=== PATIENT | female | born 1995 | race African-American/Black ===

== ENCOUNTER 2019-12-12 17:55 | Emergency (ER) | payer BC, SELFPAY ==
--- NOTE | 2019-12-12 19:59 | PC.NURSE ---
1941 pt was called into triage, no response. pt called back now at 1958, no response.
== END 2019-12-12 19:59 | disposition left against medical advice (07) ==
LOC: ANHED 20:04
DX: Z53.21 Procedure and treatment not carried out due to patient leaving prior to being seen by health care provider (principal)
CPT/HCPCS: 99199

== ENCOUNTER 2020-03-13 12:51 | Emergency (ER) | payer BC, SELFPAY ==
[2020-03-13] VITALS (9 sets, daily range): BP systolic 100–121; BP diastolic 55–68; PULSE 100–128; RESP 16–28; TEMP 36.6; O2SAT 99–100
--- NOTE | ~2020-03-13 | XR_ITS ---
EXAMINATION: XR chest 1V portable DATE: 03/13/2020 14:51 INDICATION: Shortness of breath. TECHNIQUE: A single frontal view of the chest was obtained. COMPARISON: None. FINDINGS: The chest demonstrates clear lungs without pneumonia, pleural effusion, or pneumothorax. Th e heart size is normal. IMPRESSION: 1. No acute cardiopulmonary disease. Reviewed, dictated and finalized at location A.
--- NOTE | 2020-03-13 13:07 | ECG_ITS ---
Measurements Intervals [place] Rate: 115 P: 34 KS: 121 QRS: 45 QRSD: 81 T: 34 QT: 314 QTc: 435 Interpretive Statements SINUS TACHYCARDIA BORDERLINE ST-T WAVE ABNORMALITY- INF/LAT LEADS BASELINE ARTIFACT- I, II, AVR, AVF, V1-V2 ABNORMAL ECG Electronically Signed On 03-13-2020 18:33:59 CDT by Garfield Moyer D.O.
--- NOTE | 2020-03-13 13:08 | ED.SOB ---
HPI - SOB/Dyspnea General Chief Complaint: Shortness of Breath/Dyspnea Stated Complaint: hard to breathe, 5 months preg Time Seen by Provider: 03/13/20 12:57 Source: patient Mode of arrival: ambulatory Limitations: no limitations History of Present Illness HPI Narrative: 24 yo female with h/o atopic dermatitis who is 5months who presents with c/o difficulty breathing starting yesterday during an exposure to dust. Her breathing has gradually worsened. She denies history of asthma. She denies chest pain, cough, fever, runny nose, congestion. She also reports runny and itchy eyes. PREET 08/02/20. Her OBGYN is Dr. Sekou GARCIA elicited complaint: shortness of breath Related Data Home Medications Medication Instructions Recorded Confirmed vit-iron fum-folic ac 1 tablet PO DAILY 03/13/20 03/13/20 [ Vitamin] Allergies Allergy/AdvReac Type Severity Reaction Status Date / Time No Known Allergies Allergy Verified 09/19/19 21:57 Review of Systems Review of Systems: All systems reviewed & are unremarkable except as noted in HPI and below Constitutional: Constitutional: Denies chills, Denies fever(s) and Denies weakness ENT: Denies epistaxis and Denies nasal congestion Cardiovascular: Cardiovascular: Denies chest pain, Denies rapid heart rate, Denies radiating jaw, neck or arm pain and Denies slow heart rate Respiratory: Respiratory: Denies chest congestion, Denies cough, Reports dyspnea and Reports wheezing Gastrointestinal: Gastrointestinal: Denies abdominal pain, Denies diarrhea, Denies nausea and Denies vomiting Genitourinary: Genitourinary: Denies abnormal vaginal bleeding, Denies hematuria and Denies vaginal discharge [facility] Social History Social History Smoking status: Never smoker Gender identity (if verbalized by the patient): Female Exam Const: General: alert Orientation/consciousness: patient oriented x3 Other: moderate distress due to wheezing HENMT: Head: normocephalic and atraumatic Ears: hearing grossly normal bilaterally Throat: posterior oropharynx normal and tonsils normal Eyes: Conjunctivae: conjunctival abnormality bilateral Pupils: Equal, round and reactive pupils present EOM: EOMs intact bilaterally Chest: Chest palpation & inspection: normal inspection of the chest Resp: Effort & Inspection: no retractions and tachypneic Auscultation: wheezes inspiratory wheezes and throughout Cardio: Rate: tachycardic Rhythm: regular rhythm Heart sounds: no murmurs GI: GI Palp: Yes Soft to palpation, No Tenderness to palpation present (GI), No Guarding due to palpation present (GI) and No Rigid due to palpation Skin: General skin exam: normal color Rashes: no rashes Neuro: General: patient oriented x3 and moves all extremities Extrem: General: no pedal edema Course Reevaluation(s) Reevaluation #1: Patient denies any shortness of breath any more. Her lung sounds are clear on reevaluation. She is agreeable to discharge. She understands her wbc is elevated but she states it is always high. She understands she will need to follow up with OB this week and return to ER if symptoms worsen again. Date: 03/13/20 Time: 15:41 Consultations Consultation #1: I have discussed case with ANGELA Andres, who agrees patient can be discharged home with close follow up . I Discussed leukocytosis. She is okay with discharge with steroids, claritin and albuterol rescue inhaler Date: 03/13/20 Time: 15:42 Vital Signs Vital signs: Vital Signs Pulse Rate 122 H 03/13/20 13:15 Temperature 97.8 F 03/13/20 13:18 Pulse Rate 100 03/13/20 16:00 Respiratory Rate 22 H 03/13/20 16:00 Blood Pressure 106/55 L 03/13/20 16:00 Pulse Oximetry 100 03/13/20 16:00 MDM - SOB/Dyspnea Differential Diagnosis Differential diagnosis: Likely congestive heart failure, community acquired pneumonia, asthma wit
[2020-03-13] MEDS: ALBUTEROL SULFATE NEB 2.5 MG/0.5 ML INH 10 MG INHALATION (13:23)
[2020-03-13] MEDS: IPRATROPIUM BR 0.02% INH SOLN 0.5 MG/2.5 ML VIAL 1 MG INHALATION (13:23)
[2020-03-13] MEDS: FAMOTIDINE 20 MG/2 ML VIAL IV PUSH (13:26)
[2020-03-13 14:37] LABS: Basophils Absolute Auto 0.1 K/mm3 (0.0-0.1); Basophils Percent Auto 0.5 % (0.2-1.2); Eosinophils Absolute Auto 0.6 K/mm3 (0-0.3); Eosinophils Percent Auto 2.7 % (0-4.4); Hematocrit 32.8 % (37.0-47.0); Hemoglobin 10.7 g/dL (12.0-15.0); Immature Granulocyte Absolute 0.28 K/mm3 (0.00-0.031); Immature Granulocyte Percent A 1.3 % (0-0.5); Lymphocytes Absolute Auto 1.46 K/mm3 (0.9-3.2); Lymphocytes Percent Auto 6.5 % (18.3-44.2); Mean Corpuscular HGB Conc 32.6 g/dl (32-36); Mean Corpuscular Hemoglobin 26.6 pg (26-34); Mean Corpuscular Volume 81.6 fl (80-100); Mean Platelet Volume 12.2 fl (7.4-10.4); Monocytes Percent Auto 4.4 % (2.6-8.5); Neutrophils Absolute Auto 18.9 K/mm3 (1.3-6.7); Neutrophils Percent Auto 84.6 % (45.5-73.1); Platelet Count Result 322 k/mm3 (150-375); Red Blood Count 4.02 M/mm3 (4.2-5.4); Red Cell Distribution Width 15.9 % (11.5-14.5); White Blood Count 22.3 K/mm3 (4.5-10.0)
[2020-03-13] MEDS: LACTATED RINGERS 1,000 ML 999 ML IV CONT (14:43)
[2020-03-13 14:51] LABS: Blood Urea Nitrogen 6 mg/dL (7-17); Calcium 9.1 mg/dL (8.4-10.2); Carbon Dioxide 23 mmol/L (22-30); Chloride 104 mmol/L (98-107); Estimated CRCL calculation 208 ml/min; Estimated Glomerular Filt Rate > 60; Glucose 104 mg/dL (65-105); Potassium 3.9 mmol/L (3.4-5.0); Sodium 135 mmol/L (137-145)
[2020-03-13 15:01] LABS: Magnesium 1.8 mg/dL (1.6-2.3)
[2020-03-13 15:35] LABS: Add Urine Microscopic? YES; Appearance Urine Clear (Clear); Bacteria Urine Trace /hpf; Bilirubin Urine Negative (Negative); Blood Urine Negative (Negative); Color Urine Straw (Yellow); Glucose Urine UA 1+ mg/dL (Negative); Ketones Urine Negative (Negative); Leukocyte Esterase Ur Negative LEU/UL (Negative); Mucus Urine Rare /lpf; Nitrate Urine Negative (Negative); Protein Urine Negative (Negative); RBC Urine 0-2 /hpf (0-2); Specific Grav Ur 1.012 (1.001-1.035); Squamous Epithelial Cell Urine Occasional /hpf (Few); Urobilinogen Urine Negative mg/dL (<2.0); WBC Urine 0-3 /hpf
== END 2020-03-13 16:01 | disposition home or self-care (01) ==
PROVIDERS: Emergency Provider General Practice
DX: J45.901 Unspecified asthma with (acute) exacerbation (principal); R00.0 Tachycardia, unspecified; R94.31 Abnormal electrocardiogram [ECG] [EKG]
CPT/HCPCS: 36415; 71045; 80048; 81001; 83735; 85025; 93005; 94640; 96361; 96374; 96375; 99284; J1200; J7120

== ENCOUNTER 2020-06-21 13:52 | Observation (INO) | payer BC, SELFPAY ==
--- NOTE | 2020-06-21 13:52 | OBADM ---
This patient, Alaina Grider, admitted to the OB room OB Post 115 for observation. Patient/family oriented to hospital policies and general routines including ID bracelet, bed and alarms, visiting hours, pain management, procedures, bathroom and other care routines, personal items, smoking policy, room service/diet, and visiting hours. Patient/Family are encouraged to report perceived risks to care and to ask questions if they do not understand what they are told or what they should do.
[2020-06-21 14:15] VITALS: BMI 38.3
[2020-06-21 14:30] VITALS: BP 121/68; PULSE 93; TEMP 37.1
[2020-06-21 14:46] VITALS: BP 120/65; PULSE 121
[2020-06-21 15:00] VITALS: BP 115/74; PULSE 96
[2020-06-21 15:00] LABS: Add Urine Microscopic? NO; Appearance Urine Clear (Clear); Bilirubin Urine Negative (Negative); Blood Urine Negative (Negative); Color Urine Straw (Yellow); Glucose Urine UA Negative (Negative); Ketones Urine Negative (Negative); Leukocyte Esterase Ur Negative LEU/UL (NEGATIVE); Nitrate Urine Negative (Negative); Protein Urine Negative (Negative); Specific Grav Ur 1.012 (1.001-1.035); Urobilinogen Urine Negative mg/dL (<2.0)
--- NOTE | 2020-06-29 11:10 | PM.OBTRLD ---
OB - Triage/Final Diagnosis Evaluation Laboratory results: Laboratory Tests 06/21/20 14:41 Urine Color Straw Urine Appearance Clear Urine pH 7.0 Ur Specific [place] 1.012 Urine Protein Negative Urine Glucose (UA) Negative Urine Ketones Negative Ur Blood (Man) Negative Urine Nitrate Negative Urine Bilirubin Negative Urine Urobilinogen Negative Ur Leukocyte Esterase Negative Final Diagnosis (1) Abdominal pain affecting : Code(s): O26.899 - Other specified related conditions, unspecified trimester; R10.9 - Unspecified abdominal pain Status: Acute
--- NOTE | 2020-06-29 11:11 | PM.OBTRLD ---
OB - Triage/Final Diagnosis Evaluation Laboratory results: Laboratory Tests 06/21/20 14:41 Urine Color Straw Urine Appearance Clear Urine pH 7.0 Ur Specific [place] 1.012 Urine Protein Negative Urine Glucose (UA) Negative Urine Ketones Negative Ur Blood (Man) Negative Urine Nitrate Negative Urine Bilirubin Negative Urine Urobilinogen Negative Ur Leukocyte Esterase Negative Final Diagnosis (1) Abdominal pain affecting : Code(s): O26.899 - Other specified related conditions, unspecified trimester; R10.9 - Unspecified abdominal pain Status: Acute Plan: contractions were noted and spaced out; reassuring FHT. No change in cervix. pt discharged home.
== END 2020-06-21 17:00 | disposition home or self-care (01) ==
PROVIDERS: Admitting Provider Obstetrics & Gynecology; Visit Provider Obstetrics & Gynecology
DX: O26.90 Pregnancy related conditions, unspecified, unspecified trimester (principal); R10.9 Unspecified abdominal pain; Z3A.00 Weeks of gestation of pregnancy not specified
CPT/HCPCS: 81003; 87086; 87088; G0378; G0379

== ENCOUNTER 2020-06-22 16:16 | Observation (INO) | payer BC, SELFPAY ==
--- NOTE | 2020-06-22 16:16 | OBADM ---
This patient, Alaina Grider, admitted to the OB room OB Post 117 for observation. Patient/family oriented to hospital policies and general routines including ID bracelet, bed and alarms, visiting hours, pain management, procedures, bathroom and other care routines, personal items, smoking policy, room service/diet, and visiting hours. Patient/Family are encouraged to report perceived risks to care and to ask questions if they do not understand what they are told or what they should do.
[2020-06-22 16:37] VITALS: BP 126/69; PULSE 113
[2020-06-22 17:01] VITALS: BP 115/68; PULSE 102
--- NOTE | 2020-06-29 11:12 | PN_ITS ---
This report was moved to the correct visit, [id number] on 06/30/20. Original report was signed by Dr. Surekha Sapp on 06/29/20 at 1112. OB - Triage/Final Diagnosis Evaluation Laboratory results: Laboratory Tests 06/21/20 14:41 Urine Color Straw Urine Appearance Clear Urine pH 7.0 Ur Specific [place] 1.012 Urine Protein Negative Urine Glucose (UA) Negative Urine Ketones Negative Ur Blood (Man) Negative Urine Nitrate Negative Urine Bilirubin Negative Urine Urobilinogen Negative Ur Leukocyte Esterase Negative Final Diagnosis (1) Abdominal pain affecting : Code(s): O26.899 - Other specified related conditions, unspecified trimester; R10.9 - Unspecified abdominal pain Status: Acute Plan: contractions were noted and spaced out; reassuring FHT. No change in cervix. pt discharged home. Report Initialized date/time: Surekha Sapp MD 06/29/20 / 1112 Electronically signed by: Surekha Sapp MD 06/29/20 1112 [facility]
== END 2020-06-22 18:15 | disposition home or self-care (01) ==
PROVIDERS: Admitting Provider Obstetrics & Gynecology; Visit Provider Obstetrics & Gynecology
DX: O26.893 Other specified pregnancy related conditions, third trimester (principal); R10.9 Unspecified abdominal pain; Z3A.35 35 weeks gestation of pregnancy
CPT/HCPCS: G0378; G0379

== ENCOUNTER 2020-07-02 23:32 | Observation (INO) | payer BC, SELFPAY ==
[2020-07-02 23:45] VITALS: BP 129/82; PULSE 105
[2020-07-02 23:47] VITALS: BP 143/95; PULSE 109
[2020-07-03 00:01] VITALS: BP 127/72; PULSE 99
[2020-07-03 00:16] VITALS: BP 135/77; PULSE 106
[2020-07-03 00:30] VITALS: BP 145/123; PULSE 107
[2020-07-03 00:34] LABS: Add Urine Microscopic? NO; Appearance Urine Clear (Clear); Bilirubin Urine Negative (Negative); Blood Urine Negative (Negative); Color Urine Yellow (Yellow); Glucose Urine UA Negative (Negative); Ketones Urine Negative (Negative); Leukocyte Esterase Ur Negative LEU/UL (Negative); Nitrate Urine Negative (Negative); Protein Urine Negative (Negative); Specific Grav Ur 1.017 (1.001-1.035); Urobilinogen Urine Negative mg/dL (<2.0)
[2020-07-03 00:46] VITALS: BP 111/58; PULSE 98
[2020-07-03 01:20] LABS: Hematocrit 31.6 % (37.0-47.0); Hemoglobin 10.5 g/dL (12.0-15.0); Mean Corpuscular HGB Conc 33.2 g/dl (32-36); Mean Corpuscular Hemoglobin 27.8 pg (26-34); Mean Corpuscular Volume 83.6 fl (80-100); Mean Platelet Volume 12.3 fl (7.4-10.4); Platelet Count Result 195 k/mm3 (150-375); Red Blood Count 3.78 M/mm3 (4.2-5.4); Red Cell Distribution Width 16.8 % (11.5-14.5); White Blood Count 17.5 K/mm3 (4.5-10.0)
[2020-07-03 01:31] VITALS: BP 106/64; PULSE 92
[2020-07-03 01:32] LABS: Alanine Aminotransferase 13 U/L (4-35); Albumin Level 3.6 g/dL (3.5-5.1); Alkaline Phosphatase 168 U/L (38-126); Anion Gap 5 mmol/L (8-16); Aspartate Amino Transferase 26 U/L (14-36); Bilirubin,Total 0.2 mg/dL (0.2-1.3); Blood Urea Nitrogen 9 mg/dL (7-17); Calcium 8.9 mg/dL (8.4-10.2); Carbon Dioxide 22 mmol/L (22-30); Chloride 107 mmol/L (98-107); Estimated Glomerular Filt Rate > 60; Glucose 82 mg/dL (65-105); Potassium 3.7 mmol/L (3.4-5.0); Sodium 134 mmol/L (137-145)
[2020-07-03 01:46] VITALS: BP 117/69; PULSE 85
--- NOTE | 2020-07-03 10:26 | P.PNOB_ITS ---
OB - Triage/Final Diagnosis Evaluation Laboratory results: Laboratory Tests 07/03/20 07/03/20 07/03/20 00:28 01:12 01:12 WBC 17.5 H RBC 3.78 L Hgb 10.5 L Hct 31.6 L MCV 83.6 MCH 27.8 MCHC 33.2 RDW 16.8 H Plt Count 195 MPV 12.3 H Sodium 134 L Potassium 3.7 Chloride 107 Carbon Dioxide 22 Anion Gap 5 L BUN 9 Creatinine 0.40 L Estim Creat Clear Calc Not Reportable Estimated GFR > 60 Glucose 82 Calcium 8.9 Total Bilirubin 0.2 AST 26 ALT 13 Alkaline Phosphatase 168 H Total Protein 7.0 Albumin 3.6 Urine Color Yellow Urine Appearance Clear Urine pH 6.0 Ur Specific [place] 1.017 Urine Protein Negative Urine Glucose (UA) Negative Urine Ketones Negative Ur Blood (Man) Negative Urine Nitrate Negative Urine Bilirubin Negative Urine Urobilinogen Negative Leukocyte Esterase Rfl Negative Vital signs: Vital Signs - 24 hr 07/02/20 23:45 07/02/20 23:47 07/03/20 00:01 Pulse Rate 105 H 109 H 99 Blood Pressure 129/82 143/95 H 127/72 07/03/20 00:16 07/03/20 00:30 07/03/20 00:46 Pulse Rate 106 H 107 H 98 Blood Pressure 135/77 145/123 H 111/58 L 07/03/20 01:31 07/03/20 01:46 Pulse Rate 92 85 Blood Pressure 106/64 117/69 Final Diagnosis (1) Elevated blood pressure affecting in third trimester, antepartum: Code(s): O16.3 - Unspecified maternal hypertension, third trimester Status: Acute Plan: mild range BP noted; labs stable-- pt asymptomatic. Has appt on , if elevated BP noted, would make diagnosis of gestational HTN and would be for IOL @ 37wks. FHT reassuring.
== END 2020-07-03 02:00 | disposition home or self-care (01) ==
PROVIDERS: Admitting Provider Obstetrics & Gynecology; Visit Provider Obstetrics & Gynecology
DX: O16.3 Unspecified maternal hypertension, third trimester (principal); Z3A.36 36 weeks gestation of pregnancy
CPT/HCPCS: 36415; 80053; 81003; 85027; G0378; G0379

== ENCOUNTER 2020-07-06 12:57 | Inpatient (IN) | payer BC, SELFPAY ==
[2020-07-06] VITALS (30 sets, daily range): BP systolic 98–144; BP diastolic 53–92; PULSE 75–112; TEMP 36.8–37.2; BMI 40.0
--- NOTE | ~2020-07-06 | US_ITS ---
EXAMINATION: US OB BPP wo non-stress DATE: 07/06/2020 14:50 INDICATION: Hypertension in . TECHNIQUE: Real-time pelvic ultrasound was performed. COMPARISON: None. FINDINGS: There is a single living fetus in vertex presentation. The placenta is left fundal. heart rate is 138 beats per minute (bpm). Biophysical profile performed by the technologist: breathing (30 sec sustained breathing in 30 minutes): 2 out of 2 movement (3 gross body movements in 30 minutes): 2 out of 2 tone (one episode of qkvbrzd-pnyglhnwx-fdomyjf limb movement): 2 out of 2 Amniotic fluid pocket (2 cm): 2 out of 2 Total score: 8 out of 8 IMPRESSION: 1. Single living fetus in vertex presentation. 2. Biophysical profile 8 out of 8. Reviewed, dictated and finalized at location B.
[2020-07-06 14:05] LABS: Basophils Absolute Auto 0.1 K/mm3 (0.0-0.1); Basophils Percent Auto 0.8 % (0.2-1.2); Eosinophils Absolute Auto 0.4 K/mm3 (0-0.3); Eosinophils Percent Auto 2.7 % (0-4.4); Hematocrit 32.4 % (37.0-47.0); Hemoglobin 10.5 g/dL (12.0-15.0); Immature Granulocyte Absolute 0.51 K/mm3 (0.00-0.031); Immature Granulocyte Percent A 3.9 % (0-0.5); Lymphocytes Absolute Auto 1.28 K/mm3 (0.9-3.2); Lymphocytes Percent Auto 9.8 % (18.3-44.2); Mean Corpuscular HGB Conc 32.4 g/dl (32-36); Mean Corpuscular Hemoglobin 27.3 pg (26-34); Mean Corpuscular Volume 84.2 fl (80-100); Mean Platelet Volume 12.4 fl (7.4-10.4); Monocytes Absolute Auto 0.9 K/mm3 (0.1-0.6); Monocytes Percent Auto 6.8 % (2.6-8.5); Neutrophils Absolute Auto 9.9 K/mm3 (1.3-6.7); Platelet Count Result 185 k/mm3 (150-375); Red Blood Count 3.85 M/mm3 (4.2-5.4); Red Cell Distribution Width 16.9 % (11.5-14.5); White Blood Count 13.1 K/mm3 (4.5-10.0)
[2020-07-06 14:07] LABS: Add Urine Microscopic? NO; Appearance Urine Clear (Clear); Bilirubin Urine Negative (Negative); Blood Urine Negative (Negative); Color Urine Yellow (Yellow); Glucose Urine UA Negative (Negative); Ketones Urine Negative (Negative); Leukocyte Esterase Ur Negative LEU/UL (Negative); Nitrate Urine Negative (Negative); Protein Urine Negative (Negative); Specific Grav Ur 1.013 (1.001-1.035); Urobilinogen Urine Negative mg/dL (<2.0)
[2020-07-06 14:20] LABS: Alanine Aminotransferase 14 U/L (4-35); Albumin Level 3.5 g/dL (3.5-5.1); Alkaline Phosphatase 173 U/L (38-126); Anion Gap 5 mmol/L (8-16); Aspartate Amino Transferase 32 U/L (14-36); Bilirubin,Total 0.3 mg/dL (0.2-1.3); Blood Urea Nitrogen 7 mg/dL (7-17); Calcium 8.8 mg/dL (8.4-10.2); Carbon Dioxide 24 mmol/L (22-30); Chloride 106 mmol/L (98-107); Estimated Glomerular Filt Rate > 60; Glucose 65 mg/dL (65-105); Sodium 135 mmol/L (137-145); Uric Acid 4.2 mg/dL (2.5-7.5)
[2020-07-06 14:22] LABS: Creatinine Urine 64.8 mg/dL; Total Protein Urine Random 9 mg/dL
--- NOTE | 2020-07-06 14:55 | PC.NURSE ---
Dr. Sapp informed of reactive NST, BP's, and lab results. wants to admit pt for induction of labor since pt had a SBP>140 both today and this past weekend. Orders for low dose Pitocin received.
--- NOTE | 2020-07-06 15:00 | PC.NURSE ---
Pt informed of MD desire to keep her and induce with Pitocin. Pt agreeable.
--- NOTE | 2020-07-06 15:47 | LDADM ---
This patient, Alaina Grider, was admitted to Labor/Delivery/Recovery 106 on 07/06/20 at 12:57. Plans for labor, pain management and were discussed with patient. Patient/family oriented to hospital policies and general routines including ID bracelet, bed and alarms, visiting hours, pain management, procedures, bathroom and other care routines, personal items, smoking policy, room service/diet and guest tray routines, security routines, and visiting hours. Patient/Family are encouraged to report perceived risks to care and to ask questions if they do not understand what they are told or what they should do. See OBIX for further documentation.
[2020-07-06] MEDS: AMPICILLIN 2 GM/NS 100 ML 2 GM/100 ML BAG IVPB (16:18)
[2020-07-06] MEDS: LACTATED RINGERS 1,000 ML 125 ML IV CONT (16:18)
[2020-07-06] MEDS: OXYTOCIN 30 UNITS/NS 500 ML 30 UNITS/500 ML BAG IV CONT (16:18)
--- NOTE | 2020-07-06 16:50 | PM.IMHP ---
H&P: HPI History of Present Illness Date/Time: 07/06/20 16:50 Chief complaint: pih Narrative: Alaina Grider is a 24 yo @ 37.0wks who is admitted for induction of labor due to a new diagnosis of gestational hypertension (mild range BP's on separate occasions 4hr apart). She was sent for labs (WNL including P/C ratio) and BPP (06/19). She was found to have mild range BP's (144/73). She denies LEVI, vision changes, CP, SOB. Her is complicated by: - Gestational HTN - Mild intermittent asthma; albulterol PRN - GBS positive Review of Systems Constitutional: Constitutional: Denies body ache(s), Denies chills and Denies fatigue Eyes: Eyes: Reports no additional eye complaints and Denies blurry vision Cardiovascular: Cardiovascular: Denies chest pain and Denies palpitations Respiratory: Respiratory: Denies cough and Denies dyspnea Gastrointestinal: Gastrointestinal: Denies abdominal pain, Denies nausea and Denies vomiting Genitourinary: Genitourinary: Denies vaginal discharge Neurologic: Denies headache(s) [facility] Social History Social History Smoking status: Never smoker Substance use: never Gender identity (if verbalized by the patient): Female Spiritual care concerns: No Meds Home Medications and Allergies Home Medications Medication Instructions Recorded Confirmed Type Vitamin 1 tablet PO DAILY 03/13/20 07/06/20 History albuterol sulfate 2 puff INHALATION QID PRN #8 gm 03/13/20 07/06/20 Rx ferrous sulfate 325 mg PO DAILY 07/06/20 07/06/20 History Allergies Allergy/AdvReac Type Severity Reaction Status Date / Time No Known Allergies Allergy Verified 09/19/19 21:57 Vital Signs Vital Signs - 24 hr 07/06/20 13:15 07/06/20 13:16 07/06/20 13:31 Temperature Pulse Rate 103 H 100 88 Blood Pressure 133/78 144/73 H Blood Pressure [Right Arm] 133/78 07/06/20 13:38 07/06/20 14:01 07/06/20 14:16 Temperature Pulse Rate 96 85 90 Blood Pressure 131/82 133/79 Blood Pressure [Right Arm] 144/73 H 07/06/20 14:31 07/06/20 14:46 07/06/20 15:01 Temperature Pulse Rate 96 87 75 Blood Pressure 118/81 139/76 116/53 L Blood Pressure [Right Arm] 07/06/20 16:17 07/06/20 16:20 Temperature 37.0 C Pulse Rate 105 H Blood Pressure 98/72 L Blood Pressure [Right Arm] Exam Const: General: comfortable and no acute distress Resp: Effort & Inspection: normal respiratory effort Cardio: Rate: regular rate : Other: FHT's: 140's/ mod talita/ + accels/ no decels - cat 1 TOCO: irregular ctx's Cervix: 2/ thick/ high Membranes: intact Presentation: cephalic on BPP today H&P: Results Labs Labs: Short CBC 07/06/20 Range/Units 13:52 WBC 13.1 H (4.5-10.0) K/mm3 Hgb 10.5 L (12.0-15.0) g/dL Hct 32.4 L (37.0-47.0) % Plt Count 185 (150-375) k/mm3 BMP 07/06/20 13:52 Sodium 135 L Potassium 4.0 Chloride 106 Carbon Dioxide 24 BUN 7 Creatinine 0.40 L Glucose 65 Calcium 8.8 Liver Function 07/06/20 Range/Units 13:52 Total Bilirubin 0.3 (0.2-1.3) mg/dL AST 32 (14-36) U/L ALT 14 (4-35) U/L Alkaline Phosphatase 173 H (38-126) U/L Albumin 3.5 (3.5-5.1) g/dL Urine 07/06/20 Range/Units 13:52 Urine Color Yellow (Yellow) Urine Appearance Clear (Clear) Urine pH 7.0 (5.0-9.0) Ur Specific [place] 1.013 (1.001-1.035) Urine Protein Negative (Negative) mg/dL Urine Glucose (UA) Negative (Negative) mg/dL Assessment and Plan Assessment and plan (1) Gestational hypertension: Qualifiers: Trimester: third trimester Qualified Code(s): O13.3 - Gestational [-induced] hypertension without significant proteinuria, third trimester Code(s): O13.9 - Gestational [-induced] hypertension without significant proteinuria, unspecified trimester Status: Acute Additional Plan
[2020-07-06] MEDS: AMPICILLIN 1 GM/NS 50 ML 1 GM/50 ML BAG IVPB (20:13)
[2020-07-07] VITALS (123 sets, daily range): BP systolic 110–153; BP diastolic 63–121; PULSE 62–119; RESP 16; TEMP 36.2–36.9; O2SAT 98–100
[2020-07-07] MEDS: AMPICILLIN 1 GM/NS 50 ML 1 GM/50 ML BAG IVPB ×4 (00:09→12:20)
[2020-07-07] MEDS: LACTATED RINGERS 1,000 ML 125 ML IV CONT ×2 (02:57→05:01)
--- NOTE | 2020-07-07 03:28 | WPDANESEPPF ---
Anes - Initial Pre Proc Eval Procedure: labor epidural Date/Time: 07/07/20 03:28 Surgeon: Surekha Sapp MD Pre Op Diagnosis: labor pain Pre Op Diagnosis: pih Patient Data Age: 24 Gender: F Height: 1.52 m Weight: 93 kg Last Vital Signs Temp 36.9 C 07/06/20 21:00 Pulse 103 H 07/07/20 03:25 BP 137/86 07/07/20 03:25 Pulse Ox 100 07/07/20 03:24 Allergies Allergy/AdvReac Type Severity Reaction Status Date / Time No Known Allergies Allergy Verified 09/19/19 21:57 Home Medications Medication Instructions Recorded Confirmed Type Vitamin 1 tablet PO DAILY 03/13/20 07/06/20 History albuterol sulfate 2 puff INHALATION QID PRN #8 gm 03/13/20 07/06/20 Rx ferrous sulfate 325 mg PO DAILY 07/06/20 07/06/20 History Laboratory Tests 07/06/20 07/06/20 07/06/20 13:52 13:52 13:52 WBC 13.1 K/mm3 H K/mm3 (4.5-10.0) RBC 3.85 M/mm3 L M/mm3 (4.2-5.4) Hgb 10.5 g/dL L g/dL (12.0-15.0) Hct 32.4 % L % (37.0-47.0) MCV 84.2 fl fl (80-100) MCH 27.3 pg pg (26-34) MCHC 32.4 g/dl g/dl (32-36) RDW 16.9 % H % (11.5-14.5) Plt Count 185 k/mm3 k/mm3 (150-375) MPV 12.4 fl H fl (7.4-10.4) Immature Gran % (Auto) 3.9 % H % (0-0.5) Neut % (Auto) 76.0 % H % (45.5-73.1) Lymph % (Auto) 9.8 % L % (18.3-44.2) [place] % (Auto) 6.8 % % (2.6-8.5) Eos % (Auto) 2.7 % % (0-4.4) Baso % (Auto) 0.8 % % (0.2-1.2) Lymph # (Auto) 1.28 K/mm3 K/mm3 (0.9-3.2) [place] # (Auto) 0.9 K/mm3 H K/mm3 (0.1-0.6) Eos # (Auto) 0.4 K/mm3 H K/mm3 (0-0.3) Baso # (Auto) 0.1 K/mm3 K/mm3 (0.0-0.1) Abs Immat Gran (auto) 0.51 K/mm3 H K/mm3 (0.00-0.031) Absolute Neuts (auto) 9.9 K/mm3 H K/mm3 (1.3-6.7) Absolute Nucleated RBC 0.0 K/mm3 K/mm3 (0.0-0.012) Nucleated RBC % 0.0 % % (0.0-0.2) Sodium 135 mmol/L L mmol/L (137-145) Potassium 4.0 mmol/L mmol/L (3.4-5.0) Chloride 106 mmol/L mmol/L (98-107) Carbon Dioxide 24 mmol/L mmol/L (22-30) Anion Gap 5 mmol/L L mmol/L (8-16) BUN 7 mg/dL mg/dL (7-17) Creatinine 0.40 mg/dL L mg/dL (0.7-1.0) Estim Creat Clear Calc Not Reportable Estimated GFR > 60 (59 - ) Glucose 65 mg/dL mg/dL (65-105) Uric Acid 4.2 mg/dL mg/dL (2.5-7.5) Calcium 8.8 mg/dL mg/dL (8.4-10.2) Total Bilirubin 0.3 mg/dL mg/dL (0.2-1.3) AST 32 U/L U/L (14-36) ALT 14 U/L U/L (4-35) Alkaline Phosphatase 173 U/L H U/L (38-126) Total Protein 7.0 g/dL g/dL (6.3-8.2) Albumin 3.5 g/dL g/dL (3.5-5.1) Urine Color Urine Appearance Urine pH Ur Specific [place] Urine Protein Urine Glucose (UA) Urine Ketones Ur Blood (Man) Urine Nitrate Urine Bilirubin Urine Urobilinogen Leukocyte Esterase Rfl U Random Total Protein 9 mg/dL mg/dL Urine Creatinine 64.8 mg/dL mg/dL RPR Blood Type Antibody Screen 07/06/20 07/06/20 07/06/20 13:52 15:46 15:46 WBC RBC Hgb Hct MCV MCH MCHC RDW Plt Count MPV Immature Gran % (Auto) Neut % (Auto) Lymph % (Auto) [place] % (Auto) Eos % (Auto) Baso % (Auto) Lymph # (Auto) [place] # (Auto) Eos # (Auto) Baso # (Auto) Abs Immat Gran (auto) Absolute Neuts (auto) Absolute Nucleated RBC
--- NOTE | 2020-07-07 07:46 | PM.OBPNLAB ---
Pain Control Date/time seen: 07/07/20 07:46 Pain control: epidural (s/p 2 boluses) Pelvic Exam Dilation (cm): 4 Effacement (%): 80 station: -2 Amniotic membrane status: Ruptured (clear @ 0730) Contractions Monitor mode: External Contraction frequency: 4 Contraction pattern: Regular Status status: Category l Comments: 120's/ mod talita/ + accels/ no decels Assessment and Plan Pitocin rate (mU/min): 20 Assessment: induction ongoing Plan: continuous present management Comments: - BP's in normal to mild range - Anesthesia consult for better pain control - Pitocin per protocol
[2020-07-07] MEDS: ONDANSETRON INJ 4 MG/2 ML VIAL IV PUSH (09:16)
[2020-07-07 09:30] LABS: Rapid Plasma Reagin Non-Reactive (NonReactive)
--- NOTE | 2020-07-07 12:32 | PM.OBPNLAB ---
Pain Control Date/time seen: 07/07/20 12:32 Pain control: epidural Pelvic Exam Dilation (cm): 5 Effacement (%): 90 station: -1 Amniotic membrane status: Ruptured (clear @ 0730) Contractions Monitor mode: Internal Contraction frequency: 3 Contraction pattern: Regular Intrauterine tone measurement: 60 Status status: Category l Assessment and Plan Pitocin rate (mU/min): 20 Plan: continuous present management Comments: Good change in cervical exam; 5-6cm dilated, more effaced and lower station. Adequate contractions. BP's remaining in normal to mild range, no severe.
[2020-07-07] MEDS: miSOPROStol 200 MCG TABLET 800 MCG (13:57)
[2020-07-07] MEDS: OXYTOCIN 10 UNITS/ML VIAL (14:01)
--- NOTE | 2020-07-07 14:05 | PM.OBPRVD ---
OB - Delivery Note Procedure Delivery date: 07/07/20 events: Induced HTN Induction method: per pitocin protocol Delivery augmentation: rupture of membranes Delivery monitor: external FHT and internal uterine Route of delivery: Laceration description: None Estimated blood loss (mL): 350 Anesthesia type: Epidural Disposition: floor Narrative: Patient rapidly progressed to 10 centimeters and had the desire to push. With good maternal effort she delivered the head over intact perineum. A nuchal cord was palpated but loose and easily delivered through. The shoulders and body delivered without complications. The had spontaneous cry and was immediately placed skin to skin. After approximately 1 minute the umbilical cord was then clamped and cut. A segment of cord was collected for cord gases and the remaining cord blood was collected for typing. With gentle traction on the umbilical cord and Pitocin running the placenta delivered without complications. Slight atony was noted and bimanual massage was performed. With massage the uterus firmed up however became atonic once again. Misoprostol 800 micrograms was placed rectally. The cervix vagina and perineum were examined and no lacerations were noted. Increased bleeding was once again noted and bimanual massage was performed with slight atony noted. Pitocin 10 milligrams IM was given and the uterus was then noted to be firm. Sponge, lap, instrument counts were correct at the end of the procedure. Mom and baby were left bonding skin to skin in the birthing suite in a stable condition. Baby Date of : 07/07/20 Time of : 13:47 Weeks of gestation at delivery: 37 gender: Female Weight (pounds): 6 Weight (ounces): 1 presentation: vertex cord vessel description: 3 Vessels, Nuchal Cord and Loose score one minute: 9 score five minutes: 9
[2020-07-07] MEDS: OXYTOCIN 30 UNITS/NS 500 ML 30 UNITS/500 ML BAG 125 UNITS IV CONT (14:28)
[2020-07-07] MEDS: BENZOCAINE 20% AER SPR (*SP) 56 GM CAN 1 SPRAY TOPICAL ×2 (16:44→18:25)
[2020-07-07] MEDS: OXYTOCIN 30 UNITS/NS 500 ML 30 UNITS/500 ML BAG 125 UNITS (16:44)
[2020-07-07] MEDS: WITCH HAZEL 40 PADS 1 PAD TOPICAL ×2 (16:44→18:25)
[2020-07-07] MEDS: IBUPROFEN 600 MG TABLET PO (18:24)
[2020-07-08 05:33] LABS: Hematocrit 23.6 % (37.0-47.0); Hemoglobin 7.7 g/dL (12.0-15.0)
[2020-07-08 07:25] VITALS: BP 114/58; PULSE 103; RESP 18; TEMP 36.8; O2SAT 100
--- NOTE | 2020-07-08 07:25 | WPDANLDPN2 ---
Anes-Prog Note L&D Date/Time: 07/08/20 07:25 Comfortable throughout: labor and delivery Neuraxial method: epidural Epidural/Spinal procedure site: clean & non-tender Neuro status: Neuro function grossly intact. Cardiovascular status: normal Respiratory status: normal Airway patency: baseline Mental status: baseline Post-Op hydration status: normal Vital Signs: Last Vital Signs Temp 36.8 C 07/07/20 18:35 Pulse 91 07/07/20 18:35 Resp 16 07/07/20 18:35 BP 137/77 07/07/20 18:35 Pulse Ox 98 07/07/20 06:44 I/O: Intake & Output 07/07/20 07/07/20 07/08/20 15:59 23:59 07:59 Intake Total 50 Output Total 608 Balance 50 -608 Post-procedural complaints: none Patient feedback: Patient satisfied with anesthetic care.
[2020-07-08] MEDS: POLYSACCHARIDE IRON COMPLEX 150 MG CAPSULE PO ×2 (08:39→16:31)
[2020-07-08] MEDS: MULTIVIT/MIN/PREN/FOL AC/IRON TABLET 1 TAB PO (08:39)
[2020-07-08] MEDS: DOCUSATE SODIUM 100 MG CAPSULE PO ×2 (08:40→16:31)
[2020-07-08] MEDS: IBUPROFEN 600 MG TABLET PO ×2 (08:40→16:32)
--- NOTE | 2020-07-08 11:40 | PC.NURSE ---
Consulted with patient, mother states she plans to put infant to breast at times, she will mostly bottle feed and will switch to bottle feeding by 6 weeks as she did with first child. Mother states she had difficulties with latch and milk supply with first. Offered assist with each feeding to start a good foundation for latching. Reviewed infant feeding cues, frequencies, duration of feedings, feeding elimination flow sheet, and signs of adequate intake. Demonstrated stimulation techniques to wake infant for feeding. Assisted with infant to breast. Reviewed positioning/alignment in cross cradle, holding breast in U and guided asymmetrical latch on. Discussed rational for each. Infant was able to latch correctly with first attempt. Infant nursed eagerly, with steady draws and frequent swallowing noted. Reviewed signs of a correct latch, effective nursing and suck swallow ratio. was able to maintain latch without discomfort to mother. Nipple care reviewed. Instructed mother to call out for RN assistance if she is unable to latch for feeding or she has discomfort with nursing. Instructed feeding should be initiated three hours from start of last feeding or if feeding cues are noted before. Mother voiced understanding of information shared. Discussed previous infant and discussed if mother was not adequately stimulating due to latch issue this may effect breastmilk supply, reviewed if this is at breast every three hours this should assist with stimulation of milk. Suggested mother supplement after if she is more comfortable allow at breast first.
--- NOTE | 2020-07-08 12:33 | P.PNOB_ITS ---
OB - PN: Subj Subjective Date/time seen: 07/08/20 12:33 PPD#1 Alaina reports doing well today, she would like to go home once the pediatricians have cleared her daughter. She reports her pain is controlled. She is tolerating regular diet. She is voiding and passing flatus. Her bleeding is light. She is ambulating w/o symptoms of anemia. She is breast and bottle feeding. She denies fever, chills. CP, SOB, LEVI, vision changes, N/V, dizziness or palpitations. OB - PN: Obj Data Labs CBC & Chem 7: 07/08/20 05:28 07/06/20 13:52 Labs: Laboratory Results - last 24 hr 07/08/20 05:28 Hgb 7.7 L Hct 23.6 L OB - PN A/P Assessment and Plan (1) Vaginal delivery: Code(s): O80 - Encounter for full-term uncomplicated delivery Status: Acute (2) PPH ( hemorrhage): Qualifiers: hemorrhage type: other immediate Qualified Code(s): O72.1 - Other immediate hemorrhage Code(s): O72.1 - Other immediate hemorrhage Status: Acute Assessment and Plan: from uterine atony caused by urinary retention (3) Gestational hypertension: Qualifiers: Trimester: third trimester Qualified Code(s): O13.3 - Gestational [-induced] hypertension without significant proteinuria, third trimester Code(s): O13.9 - Gestational [-induced] hypertension without significant proteinuria, unspecified trimester Status: Acute Plan day: 1 Plan: routine care and discharge home (this evening) Comments: - follow up in 4 weeks - ER return precautions discussed: n/v/abd pain, fever, bleeding, HTN - Pelvic rest x 6weks. Time Spent With Patient Time: Total time spent is greater than 50% in coordination of care (as documented) at patient's floor/unit and/or counseling patient: Review of Systems Review of Systems: All systems reviewed & are unremarkable except as noted in HPI and below (HPI) Exam Const: General: comfortable, no acute distress, alert and awake Orientati on/consciousness: patient oriented x3 Resp: Effort & Inspection: normal respiratory effort Auscultation: clear to auscultation bilaterally Cardio: Rate: regular rate GI: Auscultation: normal bowel sounds Other: non-distended, soft, non- tender : Other: fundus firm at umbilicus Psych: Appearance: grossly normal Affect: normal affect Attitude: cooperative Judgement: Good judgement present (Psych)
[2020-07-08 19:10] VITALS: BP 124/76; PULSE 105; RESP 18; TEMP 36.8; O2SAT 100
--- NOTE | 2020-07-13 14:04 | PM.OBDSVD ---
DS: Admitting Diagnosis Admitting Diagnosis Admitting Diagnosis: pih DS: Discharge Diagnosis Discharge Diagnosis (1) Vaginal delivery: Code(s): O80 - Encounter for full-term uncomplicated delivery Status: Acute (2) PPH ( hemorrhage): Qualifiers: hemorrhage type: other immediate Qualified Code(s): O72.1 - Other immediate hemorrhage Code(s): O72.1 - Other immediate hemorrhage Status: Acute (3) Gestational hypertension: Qualifiers: Trimester: third trimester Qualified Code(s): O13.3 - Gestational [-induced] hypertension without significant proteinuria, third trimester Code(s): O13.9 - Gestational [-induced] hypertension without significant proteinuria, unspecified trimester Status: Acute OB - DS: Summary OB Procedures : PIH Mgmt OB Procedures Intrapartum: Spontaneous Vag Delivery OB Procedures: : None Peripartum Data Infant Delivery Method: Natural Vaginal Laceration description: None complications: uterine atony [place] 1: Gender: Female Disposition of : home Time Spent with Patient Time attestation: Total time spent providing and/or coordinating discharge services: Exam Const: General: comfortable, no acute distress, alert, awake and anxious Orientation/consciousness: patient oriented x3 Resp: Effort & Inspection: normal respiratory effort Auscultation: clear to auscultation bilaterally Cardio: Rate: regular rate GI: Inspection: non-distended GI Palp: Yes Soft to palpation and No Tenderness to palpation present (GI) Auscultation: normal bowel sounds Psych: Appearance: grossly normal Affect: normal affect Attitude: cooperative DS: Data Data Completed and Pending Completed studies during hospitalization: Pending at discharge 07/07/20 13:55 Surgical [PTH] Routine Discharge Plan Discharge Attending physician on discharge: Surekha Sapp Consulting providers: Patrick Hinojosa V. Discharging Clinician: Surekha Sapp Anticipated Discharge Date/Time: 07/08/20 23:00 Patient Disposition: Home, Self-Care Activity: pelvic rest Diet: regular Discharge Instructions: Education: Mom and Baby Guide Given to: Mother Follow-Up: Call your delivering provider's office for an appointment to be seen in: 4 Weeks Mom and baby should come to the [facility] for the follow-up appointment. Appointment Date/Time: July 10, 2020 at 11:00 am What to expect at your follow-up visit: Physical Assessment Call [phone] if you are unable to keep your appointment time. BREAST CARE: * Wear a snug supportive bra. * For engorgement discomfort: Breast Feeding: * Apply warm moist washcloths * Express milk as needed to relieve engorgement * Wear loose clothing Bottle Feeding: * May apply ice packs * For sore nipples: * Identify correct latch-on * Apply warm moist washcloths before and after nursing * Air dry nipples after nursing * May apply Lansinoh cream to nipples EPISIOTOMY/PERINEAL CARE: * Until bleeding stops, use your narendra bottle after urinating * Change your pad frequently throughout the day * You may take sitz baths several times a day (fill your bathtub with warm water and soak for 20 minutes.) Do NOT bathe in the water * No tub baths until seen by your physician - You may shower ACTIVITY: * Rest as much as possible. * Do not exercise or lift anything heavier than your baby (such as laundry or other children.) * Avoid stairs or driving as much as possible. * Do not put anything into the vagina. No douching, tampons, or sexual activity until seen by physician. NOTIFY PHYSICIAN IF YOU HAVE ANY QUESTIONS OR IF ANY OF THE FOLLOWING SYMPTOMS OCCUR: * If your episiotomy or incision becomes red,
== END 2020-07-08 20:55 | disposition home or self-care (01) | DRG 560 ==
LOC: ANHOBOP 13:03 → ANHOBPP 13:04 → ANHLDR 15:17 → ANHOB2 07-07 18:42
PROVIDERS: Admitting Provider Obstetrics & Gynecology; PCP Obstetrics & Gynecology; Visit Provider Obstetrics & Gynecology
DX: O13.4 Gestational [pregnancy-induced] hypertension without significant proteinuria, complicating childbirth (principal); Z37.0 Single live birth; Z3A.37 37 weeks gestation of pregnancy; O99.824 Streptococcus B carrier state complicating childbirth; O99.52 Diseases of the respiratory system complicating childbirth; J45.909 Unspecified asthma, uncomplicated; O36.8330 Maternal care for abnormalities of the fetal heart rate or rhythm, third trimester, not applicable or unspecified; O69.81X0 Labor and delivery complicated by cord around neck, without compression, not applicable or unspecified; O72.1 Other immediate postpartum hemorrhage
CPT/HCPCS: 36415; 59025; 76819; 80053; 81003; 82570; 84156; 84550; 85014; 85018; 85025; 86592; 86850; 86900; 86901; 88307; 99199; A9270; J0290; J2405; J2590; J2795; J3010; J7120

== ENCOUNTER 2022-01-19 14:37 | Emergency (ER) | payer BC, SELFPAY ==
--- NOTE | ~2022-01-19 | XR_ITS ---
EXAMINATION: XR chest 2V DATE: 01/19/2022 15:48 INDICATION: Leukocytosis and throat tightness TECHNIQUE: PA and lateral views of the chest are obtained. COMPARISON: 03/13/2020 FINDINGS: The lungs are free of acute opacities. There is no pleural effusion or pneumothorax. The ca rdiomediastinal silhouette is normal. The visualized bones and soft tissues are unremarkable. IMPRESSION: 1. No acute cardiopulmonary abnormality. Reviewed, dictated and finalized at location B. E CONSULTANT
[2022-01-19 14:47] VITALS: PULSE 126
--- NOTE | 2022-01-19 14:47 | ECG_ITS ---
Measurements Intervals [place] Rate: 131 P: 50 MS: 144 QRS: 28 QRSD: 88 T: -6 QT: 333 QTc: 492 Interpretive Statements SINUS TACHYCARDIA BASELINE ARTIFACT NONSPECIFIC ST ABNORMALITY BORDERLINE ECG COMPARED TO ECG 03/13/2020 14:21:20 NO SIGNIFICANT CHANGES Electronically Signed On 01-19-2022 16:19:58 FILLER SHREDDING MACHINE LOADER by Mau Crockett M.D.
[2022-01-19 14:48] VITALS: BP 147/86; PULSE 130; RESP 19; O2SAT 100
[2022-01-19 14:49] VITALS: BP 147/86; PULSE 126; RESP 16; TEMP 36.8; O2SAT 100
[2022-01-19] MEDS: ASPIRIN 81 MG CHEWABLE TABLET 324 MG PO (14:55)
[2022-01-19 15:02] LABS: Basophils Absolute Auto 0.1 K/mm3 (0.0-0.1); Basophils Percent Auto 0.7 % (0.2-1.2); Eosinophils Absolute Auto 0.1 K/mm3 (0-0.3); Eosinophils Percent Auto 0.6 % (0-4.4); Hematocrit 41.2 % (37.0-47.0); Hemoglobin 13.2 g/dL (12.0-15.0); Immature Granulocyte Absolute 0.08 K/mm3 (0.00-0.031); Immature Granulocyte Percent A 0.5 % (0-0.5); Lymphocytes Absolute Auto 2.29 K/mm3 (0.9-3.2); Lymphocytes Percent Auto 14.2 % (18.3-44.2); Mean Corpuscular Hemoglobin 25.5 pg (26-34); Mean Corpuscular Volume 79.7 fl (80-100); Mean Platelet Volume 10.6 fl (7.4-10.4); Monocytes Absolute Auto 0.6 K/mm3 (0.1-0.6); Monocytes Percent Auto 3.8 % (2.6-8.5); Neutrophils Percent Auto 80.2 % (45.5-73.1); Platelet Count Result 481 k/mm3 (150-375); Red Blood Count 5.17 M/mm3 (4.2-5.4); Red Cell Distribution Width 15.5 % (11.5-14.5); White Blood Count 16.2 K/mm3 (4.5-10.0)
--- NOTE | 2022-01-19 15:08 | ED.CHESTPAIN ---
HPI - Chest Pain General Chief Complaint: Chest Pain Stated Complaint: chest pain Time Seen by Provider: 01/19/22 14:50 Source: patient Mode of arrival: ambulatory Limitations: no limitations History of Present Illness HPI narrative: Patient is a 26-year-old female complaining of chest pain, 6 out of 10, radiating to her throat described as tightness, started 3 weeks ago. Patient states that she was seen at [facility] this past week and for the same complaints. Patient was also sent here by her PCP due to the above complaints accompanied by elevated heart rate. Patient denies any shortness of breath, abdominal pain, nausea, vomiting, diaphoresis, fever or chills. Related Data Home Medications Medication Instructions Recorded Confirmed No Home Medications 01/19/22 01/19/22 Allergies Allergy/AdvReac Type Severity Reaction Status Date / Time No Known Allergies Allergy Verified 01/19/22 14:47 Review of Systems Review of Systems: All systems reviewed & are unremarkable except as noted in HPI and below Constitutional: Constitutional: Denies body ache(s), Denies chills, Denies excessive sweating, Denies fatigue, Denies fever(s), Denies headache(s), Denies lethargy, Denies malaise, Denies weakness and Denies weight loss Eyes: Eyes: Denies blurry vision, Denies change in vision and Denies loss of vision ENT: Denies dizziness, Denies ear discharge, Denies headache(s), Denies lip swelling, Denies epistaxis, Denies nasal congestion, Denies neck pain, Denies throat swelling and Denies tongue swelling Cardiovascular: Cardiovascular: Denies diaphoresis, Denies rapid heart rate, Denies edema, Denies irregular heart rhythm, Denies lightheadedness, Denies dyspnea and Denies dyspnea on exertion Respiratory: Respiratory: Denies chest congestion, Denies cough, Denies hemoptysis, Denies dyspnea and Denies dyspnea on exertion Gastrointestinal: Gastrointestinal: Denies abdominal pain, Denies melena, Denies hematochezia, Denies diarrhea, Denies nausea, Denies vomiting and Denies hematemesis Musculoskeletal: Musculoskeletal: Denies abnormal gait, Denies deformity, Denies joint swelling, Denies limited range of motion, Denies neck pain and Denies numbness Neurologic: Denies Abnormal speech present, Denies abnormal gait, Denies confusion, Denies dizziness, Denies headache(s), Denies focal weakness, Denies loss of vision, Denies numbness, Denies Other visual disturbances, Denies Sensory deficit (Neuro) and Denies weakness Psychiatric: Psychiatric: Denies confusion, Denies depression, Denies auditory hallucinations, Denies homicidal ideation and Denies suicidal ideation Endocrine: Endocrine: Denies cold intolerance, Denies excessive sweating, Denies fatigue, Denies heat intolerance and Denies palpitations Hematologic/Lymphatic: Hematologic/Lymphatic: Denies easy bleeding and Denies easy bruising Allergic/Immunologic: Allergic/Immunologic: Denies lip swelling, Denies throat swelling and Denies tongue swelling PMFSH Past Medical History Medical History (Updated 01/19/22 @ 17:12 by Mayo Pappas MD) Healthy female adult Surgical History Surgical History No history of previous surgery Social History Social History Smoking status: Never smoker Substance use: never Gender identity (if verbalized by the patient): Female Spiritual care concerns: No Exam Const: General: cooperative, healthy appearing, comfortable, no acute distress, well developed, alert and awake; No confusion Orientation/consciousness: oriented to person, oriented to place, oriented to time, patient oriented x3 and No confusion Limitations: no limitations HENMT: Head: normal to inspection, normocephalic and atraumatic Ears: hearing grossly normal bilaterally, TM normal on the right and TM normal on the left General nose exam: Normal external n
[2022-01-19 15:11] LABS: INR 1.1; Prothrombin Time 13.9 Seconds (11.1-14.7)
[2022-01-19 15:17] LABS: D Dimer 0.27 ug/mL (<0.48)
[2022-01-19 16:02] LABS: Alanine Aminotransferase 16 U/L (4-35); Alkaline Phosphatase 130 U/L (38-126); Anion Gap 11 mmol/L (8-16); Aspartate Amino Transferase 23 U/L (14-36); Bilirubin,Total 0.7 mg/dL (0.2-1.3); Blood Urea Nitrogen 11 mg/dL (7-17); Calcium 9.4 mg/dL (8.4-10.2); Carbon Dioxide 23 mmol/L (22-30); Chloride 105 mmol/L (98-107); Estimated CRCL calculation 100 ml/min; Estimated Glomerular Filt Rate > 60; Glucose 93 mg/dL (65-110); Lipase 33 U/L (23-300); Potassium 3.7 mmol/L (3.4-5.0); Sodium 139 mmol/L (137-145)
[2022-01-19 16:13] LABS: Troponin I < 0.012 ng/mL (0.000-0.034)
[2022-01-19 16:49] VITALS: PULSE 98; RESP 17; O2SAT 100
[2022-01-19 17:11] LABS: Add Urine Microscopic? YES; Appearance Urine Cloudy (Clear); Bilirubin Urine Negative (Negative); Blood Urine 1+ (Negative); Color Urine Yellow (Yellow); Glucose Urine UA Negative (Negative); Ketones Urine Negative (Negative); Leukocyte Esterase Ur Negative LEU/UL (Negative); Mucus Urine Few /lpf; Nitrate Urine Negative (Negative); Protein Urine Negative (Negative); RBC Urine 0-2 /hpf (0-2); Specific Grav Ur 1.015 (1.001-1.035); Squamous Epithelial Cell Urine Few /hpf (Few); Urobilinogen Urine Negative mg/dL (<2.0); WBC Urine 0-3 /hpf
[2022-01-19 17:39] VITALS: BP 138/87; PULSE 74; RESP 18; TEMP 36.6; O2SAT 99
== END 2022-01-19 17:40 | disposition home or self-care (01) ==
PROVIDERS: Emergency Medicine; Emergency Provider Emergency Medicine
DX: R07.89 Other chest pain (principal); R00.0 Tachycardia, unspecified; R94.31 Abnormal electrocardiogram [ECG] [EKG]
CPT/HCPCS: 36415; 71046; 80053; 81001; 81025; 83690; 84443; 84484; 85025; 85380; 85610; 85730; 93005; 99284; A9270

== ENCOUNTER 2022-01-21 06:19 | Emergency (ER) | payer BC, SELFPAY ==
--- NOTE | ~2022-01-21 | CT_ITS ---
EXAMINATION: CT soft tissue neck w con DATE: 01/21/2022 10:33 INDICATION: Dysphagia. TECHNIQUE: Computed tomography (CT) of the neck was performed with 75 mL Omnipaque-350 intravenous co ntrast. Automated exposure control and iterative reconstruction technique were employed. The dose-sheila gth product was 531.67 mGy-cm. COMPARISON: None FINDINGS: The pharynx and larynx are normal. No abscess. There are no pathologically enlarged lymph n odes. The cervical carotid arteries are normal. The bones are unremarkable. IMPRESSION: 1. No etiology for the patient's symptoms. Reviewed, dictated and finalized at location A. HOUSE ENGINEER
[2022-01-21 06:25] VITALS: BP 124/58; PULSE 104; RESP 18; TEMP 36.3; O2SAT 100
[2022-01-21 06:26] VITALS: O2SAT 100
[2022-01-21 06:27] VITALS: BP 124/58; O2SAT 100
[2022-01-21] MEDS: BELLADONNA ALK/PHENOB ELIX 10 ML, MAG HYDROX/ALUMINUM HYD/SIMETH 30 ML, LIDOCAINE HCL 2... PO (07:18)
--- NOTE | 2022-01-21 08:14 | ED.GENADULT ---
HPI - General Adult General Chief complaint: Unspecified Stated complaint: throat swelling Time Seen by Provider: 01/21/22 07:00 History of Present Illness HPI narrative: Patient is a 26-year-old female who presents ER with discomfort in her throat. She feels like her throat swollen and has discomfort when swallowing. She reports the majority of her discomfort occurs when she is laying down in bed at night sleeping. She will occasionally feel like sharp pain in her chest with this. She has been seen in multiple ERs for the same thing over the last couple weeks. She has had multiple cardiac evaluations have been unremarkable. She is being referred to a salon stylist by her PCP. She is unsure if this is related to eating or drinking. She does not think she has burning in the back of her throat. No alleviating factors that she is found. Related Data Allergies Allergy/AdvReac Type Severity Reaction Status Date / Time No Known Allergies Allergy Verified 01/19/22 14:47 Review of Systems Review of Systems: All systems reviewed & are unremarkable except as noted in HPI and below Constitutional: Constitutional: Denies chills and Denies fever(s) ENT: Denies nasal congestion, Denies sinus pressure and Reports sore throat Comments: discomfort with swallowing Cardiovascular: Cardiovascular: Reports chest pain, Denies radiating jaw, neck or arm pain and Denies palpitations Respiratory: Respiratory: Denies cough, Denies dyspnea and Denies wheezing Gastrointestinal: Gastrointestinal: Denies abdominal pain, Denies nausea and Denies vomiting PMFSH Past Medical History Medical History (Updated 01/21/22 @ 10:54 by Blas Barraza MD) Healthy female adult Surgical History Surgical History No history of previous surgery Social History Social History Smoking status: Never smoker Substance use: never Gender identity (if verbalized by the patient): Female Spiritual care concerns: No Exam Narrative: GENERAL: Well-appearing, well-nourished, and in no acute distress. HEAD: Normocephalic, atraumatic. ENT: Mucous membranes moist. Normal-appearing posterior oropharynx. Neck: Supple. CHEST: Clear to auscultation. No respiratory distress. HEART: Regular rate and rhythm. Normal peripheral pulses. ABDOMEN: Soft, nontender, nondistended. EXTREMITIES: Normal range of motion. No edema. SKIN: Warm, dry, no rash. NEURO: Alert and oriented x3. PSYCH: Normal mood and affect. Course Course Emergency Course: CT unremarkable. Negative cardiac work-ups in the past. Suspect reflux esophagitis given intensity of symptoms at night when lying down flat. Discharge on PPI. Vital Signs Vital signs: Vital Signs Temperature 97.3 F L 01/21/22 06:25 Pulse Rate 104 H 01/21/22 06:25 Respiratory Rate 18 01/21/22 06:25 Blood Pressure 124/58 L 01/21/22 06:25 Pulse Oximetry 100 01/21/22 06:25 Temperature 97.3 F L 01/21/22 06:25 Pulse Rate 104 H 01/21/22 06:25 Respiratory Rate 18 01/21/22 06:25 Blood Pressure 124/58 L 01/21/22 06:27 Pulse Oximetry 100 01/21/22 06:27 Medical Decision Making Vital Signs Vital Signs: Vital Signs Temperature 97.3 F L 01/21/22 06:25 Pulse Rate 104 H 01/21/22 06:25 Respiratory Rate 18 01/21/22 06:25 Blood Pressure 124/58 L 01/21/22 06:25 Pulse Oximetry 100 01/21/22 06:25 Temperature 97.3 F L 01/21/22 06:25 Pulse Rate 104 H 01/21/22 06:25 Respiratory Rate 18 01/21/22 06:25 Blood Pressure 124/58 L 01/21/22 06:27 Pulse Oximetry 100 01/21/22 06:27 Lab Data Result diagrams: 01/21/22 08:50 Labs: Lab Results 01/21/22 Range/Units 08:50 Creatinine 0.60 L (0.7-1.0) mg/dL Estim Creat Clear Calc 117 ml/min Estimated GFR > 60 (59 - ) Imaging Data Radiologist's impression: ITS Impressions Soft Tissu
[2022-01-21 09:06] LABS: Estimated CRCL calculation 117 ml/min; Estimated Glomerular Filt Rate > 60
[2022-01-21 11:05] VITALS: BP 126/72; PULSE 78
== END 2022-01-21 11:06 | disposition home or self-care (01) ==
PROVIDERS: Emergency Provider Emergency Medicine
DX: R10.13 Epigastric pain (principal)
CPT/HCPCS: 36415; 70491; 82565; 99284; A9270; Q9967

== ENCOUNTER 2022-01-26 16:16 | Emergency (ER) | payer BC, SELFPAY ==
--- NOTE | ~2022-01-26 | XR_ITS ---
EXAMINATION: XR chest 2V 01/26/2022 16:45 INDICATION: Chest pain PROCEDURE: 2 view chest COMPARISON: 01/19/2022 FINDINGS: The lungs are clear. The cardiomediastinal silhouette is within normal limits. There are no pleural effusions. There is no pneumothorax suspected. IMPRESSION: 1: NO ACUTE CARDIOPULMONARY DISEASE. Reviewed, dictated and finalized at location B.
[2022-01-26 16:19] VITALS: BP 150/84; PULSE 119; RESP 18; TEMP 36.4; O2SAT 98
--- NOTE | 2022-01-26 16:23 | ECG_ITS ---
Measurements Intervals [place] Rate: 110 P: 40 [place]: 133 QRS: 21 QRSD: 87 T: 10 QT: 329 QTc: 445 Interpretive Statements SINUS TACHYCARDIA ABNORMAL RHYTHM ECG COMPARED TO ECG 01/19/2022 14:49:40 NO SIGNIFICANT CHANGES Electronically Signed On 01-26-2022 18:49:24 CDT by Юлия Holland M.D.
--- NOTE | 2022-01-26 16:54 | ED.GENADULT ---
HPI - General Adult General Chief complaint: Unspecified Stated complaint: Throat pain, and lower back pain Time Seen by Provider: 01/26/22 16:36 Source: patient Mode of arrival: ambulatory Limitations: no limitations History of Present Illness HPI narrative: This is a 26 year old female that presents to the ER for intermittent chest pain ongoing over the last couple of weeks. Reports the pain is intermittent and sharp in nature. It happens daily. Reports she also feels like she has a discomfort in her esophagus. She has been taking reflux medications for this with little relief. Reports the pain makes her feel short of breath. She has not taken anything for pain today. Denies fever, cough, or lower extremity edema. Related Data Allergies Allergy/AdvReac Type Severity Reaction Status Date / Time No Known Allergies Allergy Verified 01/19/22 14:47 Review of Systems Review of Systems: CONSTITUTIONAL: Denies fever CARDIOVASCULAR: Reports chest pain. Denies edema. RESPIRATORY: Reports dyspnea. GASTROINTESTINAL: Denies abdominal pain, nausea, vomiting GENITOURINARY: Denies dysuria All systems reviewed & are unremarkable except as noted in HPI and below PMFSH Past Medical History Medical History (Updated 01/26/22 @ 18:53 by Karissa Plaza PA-C) Healthy female adult Surgical History Surgical History No history of previous surgery Social History Social History Smoking status: Never smoker Substance use: never Gender identity (if verbalized by the patient): Female Spiritual care concerns: No Exam Narrative: GENERAL: Well-appearing, well-nourished, and in no acute distress. HEAD: Normocephalic, atraumatic. EYES: EOMI. ENT: Normal posterior oropharynx CHEST: Clear to auscultation. No respiratory distress. No wheezes rales or rhonchi HEART: Regular rate and rhythm. No murmur heard. Normal peripheral pulses. ABDOMEN: Soft, nontender, nondistended, normal active bowel sounds. EXTREMITIES: Normal range of motion. No edema. SKIN: Warm, dry, no rash. NEURO: No focal deficits. Alert and oriented x3. PSYCH: Normal mood and affect Course Vital Signs Vital signs: Vital Signs Temperature 97.6 F 01/26/22 16:19 Pulse Rate 119 H 01/26/22 16:19 Respiratory Rate 18 01/26/22 16:19 Blood Pressure 150/84 H 01/26/22 16:19 Pulse Oximetry 98 01/26/22 16:19 Temperature 97.6 F 01/26/22 16:19 Pulse Rate 119 H 01/26/22 16:19 Respiratory Rate 18 01/26/22 16:19 Blood Pressure 150/84 H 01/26/22 16:19 Pulse Oximetry 98 01/26/22 16:19 Medical Decision Making MDM Narrative Medical decision making narrative: Patient presents to the emergency department for chest pain ongoing over the last couple of weeks. She is afebrile and nontoxic-appearing. Mildly tachycardic upon arrival, this normalized with IV fluid administration. Oxygen saturation has remained normal on room air. CBC with leukocytosis to 15.5. Looking at her last labs it appears that this is chronic for her. She was instructed that it would be helpful to follow-up with a associate doctor for this. Also shows normocytic anemia with hemoglobin of 11.8. Metabolic panel with mild hypokalemia, otherwise no concerning findings. Patient given a dose of potassium in the ED. Lipase is normal. EKG without acute ST changes and baseline troponin is negative. D-dimer is not elevated. Chest x-ray without acute cardiopulmonary abnormality. Bedside test is negative and urine is without evidence of infection. Patient was updated on case findings. Instructed to follow-up with her primary doctor and hematology. Has been having these symptoms for weeks and has been evaluated in our ED for this. Reportedly has gone to other emergency departments as well. Was reporting sensation of swelling in the throat. She has had a normal CT scan of
[2022-01-26 16:56] LABS: Basophils Absolute Auto 0.1 K/mm3 (0.0-0.1); Basophils Percent Auto 0.7 % (0.2-1.2); Eosinophils Absolute Auto 0.1 K/mm3 (0-0.3); Eosinophils Percent Auto 0.4 % (0-4.4); Hematocrit 38.2 % (37.0-47.0); Hemoglobin 11.8 g/dL (12.0-15.0); Immature Granulocyte Absolute 0.07 K/mm3 (0.00-0.031); Immature Granulocyte Percent A 0.5 % (0-0.5); Lymphocytes Absolute Auto 2.02 K/mm3 (0.9-3.2); Mean Corpuscular HGB Conc 30.9 g/dl (32-36); Mean Corpuscular Hemoglobin 25.2 pg (26-34); Mean Corpuscular Volume 81.6 fl (80-100); Mean Platelet Volume 10.2 fl (7.4-10.4); Monocytes Absolute Auto 0.7 K/mm3 (0.1-0.6); Monocytes Percent Auto 4.5 % (2.6-8.5); Neutrophils Absolute Auto 12.6 K/mm3 (1.3-6.7); Neutrophils Percent Auto 80.9 % (45.5-73.1); Platelet Count Result 423 k/mm3 (150-375); Red Blood Count 4.68 M/mm3 (4.2-5.4); Red Cell Distribution Width 15.6 % (11.5-14.5); White Blood Count 15.5 K/mm3 (4.5-10.0)
[2022-01-26 17:07] LABS: Alanine Aminotransferase 25 U/L (4-35); Albumin Level 4.9 g/dL (3.5-5.1); Alkaline Phosphatase 118 U/L (38-126); Anion Gap 10 mmol/L (8-16); Aspartate Amino Transferase 34 U/L (14-36); Bilirubin,Total 0.6 mg/dL (0.2-1.3); Blood Urea Nitrogen 10 mg/dL (7-17); Calcium 9.3 mg/dL (8.4-10.2); Carbon Dioxide 25 mmol/L (22-30); Chloride 105 mmol/L (98-107); Estimated CRCL calculation 128 ml/min; Estimated Glomerular Filt Rate > 60; Glucose 106 mg/dL (65-110); Lipase 36 U/L (23-300); Potassium 3.3 mmol/L (3.4-5.0); Sodium 140 mmol/L (137-145)
[2022-01-26 17:19] LABS: Troponin I < 0.012 ng/mL (0.000-0.034)
[2022-01-26 17:31] LABS: INR 1.1; Partial Thromboplastin Time 33.5 SECONDS (22.3-36.8); Prothrombin Time 13.9 Seconds (11.1-14.7)
--- NOTE | 2022-01-26 17:38 | PC.NURSE ---
unable to obtain IV access. Bina Mccray attempting Ultrasound IV
[2022-01-26 17:40] LABS: D Dimer 0.27 ug/mL (<0.48)
[2022-01-26] MEDS: ONDANSETRON INJ 4 MG/2 ML VIAL IV PUSH (18:01)
[2022-01-26] MEDS: PANTOPRAZOLE SODIUM IV 40 MG VIAL IV PUSH (18:01)
[2022-01-26] MEDS: SODIUM CHLORIDE 0.9% IV 500 ML 999 ML IV CONT (18:01)
[2022-01-26 18:12] LABS: Add Urine Microscopic? YES; Appearance Urine Clear (Clear); Bilirubin Urine Negative (Negative); Blood Urine 1+ (Negative); Color Urine Yellow (Yellow); Glucose Urine UA Negative (Negative); Ketones Urine Negative (Negative); Leukocyte Esterase Ur Negative LEU/UL (Negative); Mucus Urine Heavy /lpf; Nitrate Urine Negative (Negative); Protein Urine Negative (Negative); Specific Grav Ur 1.019 (1.001-1.035); Squamous Epithelial Cell Urine Occasional /hpf (Few); Urobilinogen Urine Negative mg/dL (<2.0); WBC Urine 0-3 /hpf
[2022-01-26] MEDS: POTASSIUM CHLORIDE 20 MEQ TABLET 40 MEQ PO (18:51)
[2022-01-26 19:06] VITALS: BP 132/70; PULSE 80; RESP 18; O2SAT 98
== END 2022-01-26 19:06 | disposition home or self-care (01) ==
PROVIDERS: Physician Assistant; Emergency Provider Emergency Medicine; PCP Emergency Medicine
DX: R07.9 Chest pain, unspecified (principal); D72.829 Elevated white blood cell count, unspecified; R00.0 Tachycardia, unspecified
CPT/HCPCS: 36415; 71046; 80053; 81001; 81025; 83690; 84484; 85025; 85380; 85610; 85730; 93005; 96365; 96375; 99284; A9270; C9113; J0131; J2405; J7040